=== PATIENT | female | born 1960 | race Caucasian/White ===

== ENCOUNTER → 2018-01-17 | Outpatient (CLI) | payer BC ==
--- NOTE | 2018-01-17 14:50 | DIAGNOSTIC IMAGING REPORT ---
Nuclear gastric emptying study: CLINICAL HISTORY: Gastroesophageal reflux disease. COMPARISON STUDY: None. TECHNIQUE: Following the oral administration of 1.1 mCi of technetium 99m sulfur colloid in egg sandwich and 8 ounces of water, static abdominal images were obtained anteriorly and posteriorly at 0 minutes, 1 hour, 2 hour, and 4 hour time intervals. Gastric emptying was calculated utilizing the geometric mean method. FINDINGS: There is approximately 85% gastric activity remaining at the 1 hour time interval (normal is less than 90%), 69% at the 2 hour time interval (normal is less than 60%), and 15% remaining at the 4 hour time interval (normal is less than 10%). IMPRESSION: Minimally delayed gastric emptying at the 2 hour and 4 hour time points. Electronically signed by: Jefe Figueroa M.D. 01/17/2018 2:49 PM Dictated Date/Time: 01/17/2018 2:48 PM
== END | disposition home or self-care (01) ==
LOC: C.NUCL 09:26
PROVIDERS: ATTEND Internal Medicine
DX: K21.9 Gastro-esophageal reflux disease without esophagitis (principal); K30 Functional dyspepsia

== ENCOUNTER → 2018-02-19 | Day surgery (SDC) | payer BC ==
[2018-02-12 07:35] VITALS: Ht 162.6 cm; Wt 81.8 kg
[~2018-02-19] VITALS: Ht 162.6 cm; Wt 81.8 kg
[~2018-02-19] MED LIST: ASCO500T3 PO; FAMO20TA11 PO; LIDOCAINE HCL 2% 2 ML VIAL (20MG/ML) ONE; MULT-506 PO; OMEG10007 PO; OYST500T47 PO; PANT40TA PO; PROPOFOL IV EMULSION 10 MG/ML 20 ML VIAL IV ONE; SIMV20TA2 PO; SODIUM CHLORIDE 0.9% 500ML 500 ML IV ONE
--- NOTE | 2018-02-19 11:46 | Endo History and Physical ---
History & Physical Date of Service: Feb 19, 2018. Chief Complaint: GERD Referring Physician: Dr. Mcintyre History of Present Illness 57 yo CF who presents for EGD secondary to GERD. Past Surgical History Hx Cardiac Surgery: No Hx Internal Defibrillator: No Hx Pacemaker: No Hx Abdominal Surgery: Yes (KIRSTEN, MARLENA) Hx of Implantable Prosthesis: No Hx Post-Op Nausea and Vomiting: No Hx Cancer Surgery: No Hx Thoracic Surgery: No Hx Orthopedic: Yes (LEFT TKA) Hx Urinary Tract Surgery: No Family History Colon CA Social History Smoking Status: Never Smoker Hx Substance Use: No Hx Alcohol Use: No Allergies Coded Allergies: Latex (Verified Allergy, Unknown, RASH, 02/19/18) NO KNOWN DRUG ALLERGIES (Verified Allergy, Unknown, ., 02/19/18) Current Medications Reported Home Medications Medications Dose Route/Sig Max Daily Dose Days Date Category Dose Instructions Multivitamin (Multivitamins) Tab 1 Tab PO QAM 02/12/18 Reported "TAKES SOMETIMES" [place]-3 (Fish Oil) 1 Ea Cap 1 Cap PO QPM 02/12/18 Reported Vitamin C (Ascorbic Acid) 500 Mg Tab 1 Tab PO QAM 02/12/18 Reported Pepcid (Famotidine) 20 Mg Tab 20 Mg PO QPM 02/12/18 Reported Calcium (Oyster Shell) 500 Mg Tab 1 Tab PO QAM 02/12/18 Reported Protonix (Pantoprazole Sodium) 40 Mg Tab 40 Mg PO QAM 02/12/18 Reported Zocor (Simvastatin) 20 Mg Tab 20 Mg PO QPM 02/12/18 Reported Vital Signs Weight (Kilograms): 81.82 Height (Feet): 5 Height (Inches): 4 Physical Exam General Appearance: WD/WN, no apparent distress Respiratory/Chest: Auscultation: breath sounds normal Cardiovascular: Heart Auscultation: RRR Abdomen: Bowel Sounds: normal Inspection & Palpation: soft, non-distended, no tenderness, guarding & rebound Assessment and Plan Assessment: 57 yo CF who presents for EGD secondary to GERD. Plan: Proceed with EGD.
--- NOTE | 2018-02-19 13:20 | Discharge Instructions ---
Endoscopy Patient Instructions Date / Procedure(s) Performed Feb 19, 2018. EGD Allergy Information Coded Allergies: Latex (Verified Allergy, Unknown, RASH, 02/19/18) NO KNOWN DRUG ALLERGIES (Verified Allergy, Unknown, ., 02/19/18) Discharge Date / Findings Feb 19, 2018. Schatzki's Ring s/p dilation Hiatal hernia Gastritis s/p biopsies Medication Instructions Stopped Medication(s): ALL EXCEPT PROTONIX OK to resume all medications today as prescribed Reported Home Medications Medications Dose Route/Sig Max Daily Dose Days Date Category Dose Instructions Multivitamin (Multivitamins) Tab 1 Tab PO QAM 02/12/18 Reported "TAKES SOMETIMES" [place]-3 (Fish Oil) 1 Ea Cap 1 Cap PO QPM 02/12/18 Reported Vitamin C (Ascorbic Acid) 500 Mg Tab 1 Tab PO QAM 02/12/18 Reported Pepcid (Famotidine) 20 Mg Tab 20 Mg PO QPM 02/12/18 Reported Calcium (Oyster Shell) 500 Mg Tab 1 Tab PO QAM 02/12/18 Reported Protonix (Pantoprazole Sodium) 40 Mg Tab 40 Mg PO QAM 02/12/18 Reported Zocor (Simvastatin) 20 Mg Tab 20 Mg PO QPM 02/12/18 Reported Provider Instructions Activity Restrictions - No exercising or heavy lifting for 24 hours. - Do not drink alcohol the day of the procedure. - Do not drive a car or operate machinery until the day after the procedure. - Do not make any important decisions or sign important papers in 24 hours after the procedure. Following Day: - Return to full activity which may include returning to work/school. Diet Start your diet with liquids and light foods (jello, soup, juice, toast). Then eat your usual diet if not nauseated. Treatment For Common After Affects For mild abdominal pain, bloating, or excessive gas: - Rest - Eat lightly - Lie on right side Follow-Up Information Follow-up with Dr. Mcintyre as scheduled Anesthesia Information What You Should Know You have had a procedure that required some medicine to reduce anxiety and discomfort. This treatment is called moderate sedation. After receiving the treatment, you may be sleepy, but you will be able to breathe on your own. The effects of the treatment may last for several hours. Follow these instructions along with Activity/Diet recommendations noted above: * Do NOT do anything where dizziness or clumsiness would be dangerous. * Rest quietly at home today, then you can be up and about tomorrow. * Have a responsible person stay with you the rest of today. * You may have had an I.V. today. If so, you may take the dressing off later today. Recommendations Call your doctor if: * Trouble breathing * Continuous vomiting for more than 24 hours * Temperature above 101 degrees * Severe abdominal pain or bloating * Pain not relieved by pain medicine ordered * There is increased drainage or redness from any incision * A large amount of rectal bleeding greater than 2-3 tablespoons. (If you had a polyp/s removed or have hemorrhoids, a small amount of blood - from the rectum is to be expected.) * You have any unanswered questions or concerns. IN THE EVENT OF A SERIOUS EMERGENCY, GO TO THE NEAREST EMERGENCY ROOM Your discharge instructions were prepared by provider Ronald Wells. Patient Instructions Signature Page Brittny Fisher Patient (or Guardian) Signature/Date: I have read and understand the instructions given to me by my caregivers. Caregiver/RN/Doctor Signature/Date: The above-named patient and/or guardian has received patient instructions on this date. + Original Patient Signature Page (only) stays with chart. Please make copy for patient.
--- NOTE | 2018-02-19 13:26 | GI REPORT ---
Procedure Date: 02/19/2018 12:45 PM Procedure: Upper GI endoscopy Indications: Gastro-esophageal reflux disease Medicines: Monitored Anesthesia Care Complications: No immediate complications. Estimated Blood Loss: Estimated blood loss: none. Procedure: Pre-Anesthesia Assessment: - Prior to the procedure, a History and Physical was performed, and patient medications and allergies were reviewed. The patient's tolerance of previous anesthesia was also reviewed. The risks and benefits of the procedure and the sedation options and risks were discussed with the patient. All questions were answered, and informed consent was obtained. Prior Anticoagulants: The patient has taken no previous anticoagulant or antiplatelet agents. ASA Grade Assessment: II - A patient with mild systemic disease. After reviewing the risks and benefits, the patient was deemed in satisfactory condition to undergo the procedure. After obtaining informed consent, the endoscope was passed under direct vision. Throughout the procedure, the patient's blood pressure, pulse, and oxygen saturations were monitored continuously. The scope was introduced through the mouth, and advanced to the second part of duodenum. The upper GI endoscopy was accomplished without difficulty. The patient tolerated the procedure well. Findings: A moderate Schatzki ring (acquired) was found at the gastroesophageal junction. A TTS dilator was passed through the scope. Dilation with a 15-16.5-18 mm balloon and an 18-19-20 mm balloon dilator was performed to 20 mm. The dilation site was examined and showed moderate improvement in luminal narrowing. Estimated blood loss was minimal. A small hiatal hernia was present. Localized moderate inflammation characterized by erythema was found in the gastric antrum. Biopsies were taken with a cold forceps for histology. The examined duodenum was normal. Impression: - Moderate Schatzki ring. Dilated. - Small hiatal hernia. - Gastritis. Biopsied. - Normal examined duodenum. Recommendation: - Resume previous diet. - Continue present medications. - Await pathology results. - Return to primary care physician as previously scheduled. Ronald Wells, DO 02/19/2018 1:26:37 PM This report has been signed electronically. Note Initiated On: 02/19/2018 12:45 PM I attest to the content of the Intraoperative Record and orders documented therein, exceptions below
[2018-02-19 13:30] VITALS: BP 140/80; PULSE 66; O2SAT 99
--- NOTE | 2018-02-19 14:04 | Anesthesiology Progress Note ---
Anesthesia Post Op Note Date & Time Feb 19, 2018 at 13:38 Vital Signs Pain Intensity: 0 Vital Signs Past 12 Hours Date Time Temp Pulse Resp B/P (MAP) Pulse Ox O2 Delivery O2 Flow Rate FiO2 02/19/18 13:30 66 18 140/80 (100) 99 Room Air 02/19/18 13:14 60 18 132/76 (94) 98 Room Air 02/19/18 12:59 64 18 92/58 (69) 98 Room Air 02/19/18 11:49 36.4 60 18 120/76 (91) 98 Room Air Notes Mental Status: alert / awake / arousable, participated in evaluation Pt Amnestic to Procedure: Yes Nausea / Vomiting: adequately controlled Pain: adequately controlled Airway Patency, RR, SpO2: stable & adequate BP & HR: stable & adequate Hydration State: stable & adequate Anesthetic Complications: no major complications apparent
== END | disposition home or self-care (01) ==
LOC: C.GI 11:00
PROVIDERS: ATTEND Internal Medicine
DX: K21.9 Gastro-esophageal reflux disease without esophagitis (principal); K22.2 Esophageal obstruction; K29.50 Unspecified chronic gastritis without bleeding